=== PATIENT | female | born 1930 | race Caucasian/White ===

== ENCOUNTER → 2017-02-08 | Outpatient (CLI) | payer MEDICARE, BC ==
[2013-07-08 04:51] VITALS: BP 144/65
[~2017-02-08] MED LIST: CALCIUM 500 + D1 TA1 PO; CLOBETASOL0.05% TP; DILTIAZEM60 MG PO; FLAX SEED OIL1000 MG PO; GLUCOSAMINE & C1 TA2 PO; GOOD SENSE ASPI81 M1 PO; LISINOPRIL/HCTZ1 TA1 PO; LISINOPRIL10 MG PO; SURFAK240 MG PO; [UNRECOGNIZED DRUG - OTHER] PO
== END ==
LOC: LAB 07:59
DX: H91.10 Presbycusis, unspecified ear (principal); I10 Essential (primary) hypertension; M89.9 Disorder of bone, unspecified; E78.00 Pure hypercholesterolemia, unspecified; I65.29 Occlusion and stenosis of unspecified carotid artery; R53.83 Other fatigue

== ENCOUNTER → 2017-03-09 | Outpatient (CLI) | payer MEDICARE, BC ==
[2013-07-08 04:51] VITALS: BP 144/65
== END ==
LOC: LAB 13:42
DX: N30.00 Acute cystitis without hematuria (principal)

== ENCOUNTER → 2017-03-18 | Outpatient (CLI) | payer MEDICARE, BC ==
[2013-07-08 04:51] VITALS: BP 144/65
== END ==
LOC: CARDREHAB 09:50
DX: R06.09 Other forms of dyspnea (principal); Z00.00 Encounter for general adult medical examination without abnormal findings; J02.9 Acute pharyngitis, unspecified; R05 Cough; Z13.820 Encounter for screening for osteoporosis; E78.00 Pure hypercholesterolemia, unspecified; I10 Essential (primary) hypertension; M48.06 Spinal stenosis, lumbar region; I35.0 Nonrheumatic aortic (valve) stenosis
CPT/HCPCS: A9500

== ENCOUNTER → 2017-03-18 | Outpatient (CLI) | payer MEDICARE, BC ==
[2013-07-08 04:51] VITALS: BP 144/65
== END ==
LOC: RAD 13:59
DX: N39.0 Urinary tract infection, site not specified (principal); R05 Cough; R06.09 Other forms of dyspnea; J20.9 Acute bronchitis, unspecified; I35.0 Nonrheumatic aortic (valve) stenosis; R30.0 Dysuria

== ENCOUNTER → 2017-03-21 | Outpatient (CLI) | payer MEDICARE, BC ==
[2013-07-08 04:51] VITALS: BP 144/65
== END ==
LOC: RAD 13:00
DX: R06.09 Other forms of dyspnea (principal); R60.0 Localized edema; I65.29 Occlusion and stenosis of unspecified carotid artery; I35.0 Nonrheumatic aortic (valve) stenosis; I34.0 Nonrheumatic mitral (valve) insufficiency; I07.1 Rheumatic tricuspid insufficiency

== ENCOUNTER → 2017-03-30 | Outpatient (CLI) | payer MEDICARE, BC ==
[2013-07-08 04:51] VITALS: BP 144/65
== END ==
LOC: LAB 16:49
DX: R39.15 Urgency of urination (principal)

== ENCOUNTER → 2017-04-29 | Outpatient (CLI) | payer MEDICARE, BC ==
[2013-07-08 04:51] VITALS: BP 144/65
== END ==
LOC: RAD 13:22
DX: J44.9 Chronic obstructive pulmonary disease, unspecified (principal); R29.898 Other symptoms and signs involving the musculoskeletal system; I35.0 Nonrheumatic aortic (valve) stenosis; I51.7 Cardiomegaly; K44.9 Diaphragmatic hernia without obstruction or gangrene; M41.9 Scoliosis, unspecified

== ENCOUNTER 2017-05-04 14:00 | Outpatient (RCR) | payer MEDICARE, BC ==
[2013-07-08 04:51] VITALS: BP 144/65
== END 2017-05-04 14:30 | disposition home or self-care (01) ==
LOC: PT 14:00
DX: R29.898 Other symptoms and signs involving the musculoskeletal system (principal); M48.061 Spinal stenosis, lumbar region without neurogenic claudication
CPT/HCPCS: G8978-GP; G8979-GP

== ENCOUNTER → 2017-07-01 | Outpatient (CLI) | payer MEDICARE, BC ==
[2013-07-08 04:51] VITALS: BP 144/65
== END ==
LOC: RAD 13:00
DX: E04.2 Nontoxic multinodular goiter (principal)

== ENCOUNTER 2018-01-10 18:38 | Emergency (ER) | payer MEDICARE, BC ==
[~2018-01-10] VITALS: Ht 157.5 cm; Wt 55.0 kg
[2018-01-10] MEDS ORDERED: HYDROCHLOROTH12.5 M2 PO (19:31)
[2018-01-10] MEDS ORDERED: ALBUTEROL2.5 MG/3 M IH (19:32)
[2018-01-10] MEDS ORDERED: STOOL SOFTENER250 M2 PO (19:33)
[2018-01-10] MEDS ORDERED: FISH OIL1 IU PO (19:33)
[2018-01-10 20:27] LABS: EOS # 0.2 (0.04-0.40); EOS % 2.3 % (1.0-5.0); HEMATOCRIT 38.9 % (37.0-47.0); MEAN CELL VOLUME 93 fl (78-100); MEAN CORPUSCULAR HEMOGLOBIN 31 pg (27-31); MEAN CORPUSCULAR HGB CONC 33 g/dL (33-37); MEAN PLATELET VOLUME 11.1 fl (7.4-10.4); MONO # 0.7 (0.20-0.80); NEU # 6.4 (1.40-6.50); PLATELET COUNT 200 K/mm3 (130-400); RED CELL DISTRIBUTION WIDTH 13.5 % (11.5-14.5); WHITE BLOOD COUNT 8.3 K/mm3 (4.8-10.8)
[2018-01-10 20:36] LABS: ALBUMIN 4.4 g/dL (3.5-5.0); CALCIUM 9.8 mg/dL (8.4-10.2); POTASSIUM 3.7 mmol/L (3.6-5.0); TOTAL BILIRUBIN 0.6 mg/dL (0.2-1.3); TOTAL PROTEIN 7.8 g/dL (6.3-8.2)
[2018-01-10 22:22] LABS: URINE APPEARANCE CLEAR; URINE BILIRUBIN NEGATIVE (NEGATIVE); URINE BLOOD NEGATIVE (NEGATIVE); URINE COLOR YELLOW; URINE GLUCOSE NEGATIVE (NEGATIVE); URINE KETONE NEGATIVE (NEGATIVE); URINE LEUKOCYTE ESTERASE NEGATIVE (NEGATIVE); URINE NITRATE NEGATIVE (NEGATIVE); URINE PROTEIN(semi-quant) NEGATIVE (NEGATIVE); URINE UROBILINOGEN NORMAL (NORMAL)
[2018-01-10 22:23] LABS: URINE MUCUS PRESENT (NOT PRESENT)
[2018-01-10 23:12] VITALS: BP 179/79
== END 2018-01-10 23:22 | disposition home or self-care (01) ==
LOC: ED 18:38
PROVIDERS: Nurse Practitioner Family
DX: R19.7 Diarrhea, unspecified (principal); I10 Essential (primary) hypertension; E78.5 Hyperlipidemia, unspecified; J44.9 Chronic obstructive pulmonary disease, unspecified; R60.0 Localized edema
CPT/HCPCS: J2405; J7030